=== PATIENT | male | born 1985 | race Caucasian/White ===

== ENCOUNTER → 2016-10-31 | Outpatient (CLI) | payer OTHER ==
--- NOTE | 2016-11-01 09:16 | DI ---
XR FOREARM 2VW,10/31/2016 4:28 PM: Clinical History: Left forearm pain. Previous Exam: None at this facility. Findings: AP and lateral views of the left forearm are obtained, and demonstrate anatomic alignment without fra ctures. The surrounding soft tissues are unremarkable. Impression: Normal left forearm.
== END ==
LOC: ORTHO 17:00
PROVIDERS: ATTEND Orthopaedic Surgery
DX: M79.632 Pain in left forearm (principal); R22.32 Localized swelling, mass and lump, left upper limb; Y93.E6 Activity, residential relocation
CPT/HCPCS: 73090

== ENCOUNTER → 2016-11-14 | Outpatient (CLI) | payer OTHER ==
--- NOTE | 2016-11-15 09:52 | DI ---
MRI LEFT FOREARM SCAN WITHOUT AND WITH IV CONTRAST, 11/14/2016 10:01 AM: Clinical History: Mass in the left forearm. Previous Exam: None at this facility. Technique: Axial and coronal T1 and T2 weighted and fat saturated pre-and postcontrast T1-weighted fa t saturated scans. A vitamin E capsule was placed over the area of the mass as indicated by the patie nt to the technologist. Contrast Dose: 17 mL of Magnevist. The patient indicated the mass was located on the lateral aspect of the forearm and that is where the vitamin E capsule was positioned. Therefore, the technologist performed the axial and coronal scans to optimize visualization of the lesion. However, I believe the lesion is actually located more towar d the volar aspect of the forearm. Within the subcutaneous fat just anterior to the flexor digitorum superficialis fascia is a low signa l intensity lesion on both the T1 and T2 weighted scans and it does not become saturated with fat sat uration sequence. Following contrast, this lesion shows marked enhancement. The lesion measures appro ximately 14 x 14 x 4 mm. The differential would be between a connective tissue tumor probably arising from the fascia of the flexor digitorum superficialis versus an inflammatory/foreign body reaction. The remainder of the examination is normal. Readin. There is a roughly 14 x 14 x 4 mm hypointense lesion in the distal forearm on the volar aspect th at shows marked enhancement following contrast. It is superficial to the fascia of the flexor digitor um superficialis muscle and extends into the subcutaneous fat. It does not have any signal characteri stics of a fatty tumor. The differential would be between a sarcoma arising from the fascia versus an inflammatory process or foreign body reaction. 2. The remainder of the exam is normal.
== END ==
LOC: MRI 09:46
PROVIDERS: ATTEND Orthopaedic Surgery
DX: R22.32 Localized swelling, mass and lump, left upper limb (principal)
CPT/HCPCS: 73223; A9579